=== PATIENT | male | born 1980 | race Caucasian/White ===

== ENCOUNTER 2019-05-08 08:38 | Emergency (ER) | payer OTHER ==
[~2019-05-08] VITALS: Ht 172.7 cm; Wt 68.0 kg
[2019-05-08 08:39] VITALS: BP 117/85
== END 2019-05-08 09:00 | disposition home or self-care (01) ==
LOC: ER 08:38
DX: K94.23 Gastrostomy malfunction (principal)

== ENCOUNTER 2019-06-17 12:20 | Emergency (ER) | payer OTHER ==
[~2019-06-17] VITALS: Ht 167.6 cm; Wt 88.9 kg
[2019-06-17 13:13] LABS: ABSOLUTE NEUTROPHILS 13.9 thou/uL (1.4-8.2); BASOPHILS 0.5 % (0.0-2.0); EOSINOPHILS 0.1 % (0.0-3.0); HEMOGLOBIN 19.5 gm/dL (14.0-18.0); LYMPHOCYTES 7.2 % (24.0-44.0); MCH 28.9 pg (26.0-34.0); MCHC 32.5 g/dL (28.0-37.0); MCV 88.9 fL (80.0-100.0); MONOCYTES 6.4 % (1.0-8.0); POLYS 85.8 % (36.0-66.0); RBC 6.75 mil/uL (4.50-6.00); RDW 14.4 % (10.5-14.5); WBC 16.2 thou/uL (4.0-11.0)
[2019-06-17 13:31] LABS: CREATININE 2.1 mg/dL (0.7-1.3); POTASSIUM 3.6 mmol/L (3.5-5.1)
[2019-06-17 13:34] LABS: CALCIUM 12.1 mg/dL (8.5-10.1)
[2019-06-17 13:42] LABS: ALBUMIN 4.1 g/dL (3.4-5.0); TOTAL BILIRUBIN 1.3 mg/dL (<0.1-1.0); TOTAL PROTEIN 8.9 g/dL (6.4-8.2); TROPONIN-I 0.2 ng/mL (<0.06)
[2019-06-17 14:25] LABS: LARGE PLATELETS FEW; PLATELET COUNT 303 thou/uL (150-400)
[2019-06-17 16:50] VITALS: BP 110/74
--- NOTE | 2019-06-18 08:29 | EKG ---
[place] [address] [facility] [place] [address] ELECTROCARDIOGRAM REPORT Name: LEONELA SOSA Room #: [facility] ([place], [place])Sangeeta#: [id number] Admission: 06/17/19 Attend Phys: Discharge: 06/17/19 Date of : 82 Report #: [id number] THIS REPORT FOR: //name// [facility] ED Test Date: 2019-06-17 Test Time: 12:31:59 Pat Name: LEONELA SOSA Department: Room: Gender: M Bi Lead: : 1980 Requested By: Sarah Norman Order Number: [id number] MD: Luc Montgomery Measurements Intervals [place] Rate: 140 P: 79 WA: 72 QRS: 58 QRSD: 80 T: 264 QT: 327 QTc: 499 Interpretive Statements Sinus tachycardia Abnormal R-wave progression, early transition Nonspecific ST segment abnormality Borderline prolonged QT interval No previous ECG available for comparison Electronically Signed On 06-18-2019 8:29:03 [employer] by Luc Montgomery [email or web address] <ELECTRONICALLY SIGNED> By: Luc Montgomery MD, [facility] 06/18/19 0829 1231 1231 Luc Montgomery MD, FACC /EPI
== END 2019-06-17 15:18 | disposition short-term general hospital (02) ==
LOC: ER 12:20
PROVIDERS: Nurse Practitioner
DX: A41.9 Sepsis, unspecified organism (principal); R41.82 Altered mental status, unspecified

== ENCOUNTER 2020-02-27 11:20 | Emergency (ER) | payer OTHER ==
[~2020-02-27] VITALS: Ht 167.6 cm; Wt 81.7 kg
[2020-02-27 12:14] LABS: HEMATOCRIT 56.9 % (42.0-52.0); HEMOGLOBIN 18.5 gm/dL (14.0-18.0); MCH 28.6 pg (26.0-34.0); MCHC 32.5 g/dL (28.0-37.0); RBC 6.46 mil/uL (4.50-6.00); RDW 13.6 % (10.5-14.5); WBC 20.7 thou/uL (4.0-11.0)
[2020-02-27 12:25] LABS: ANION GAP 8 mmol/L (7-16); BUN 49 mg/dL (7-18); CALCIUM 10.4 mg/dL (8.5-10.1); CHLORIDE 111 mmol/L (98-107); CO2 33 mmol/L (21-32); CREATININE 1.3 mg/dL (0.7-1.3); GLUCOSE 156 mg/dL (74-106); POTASSIUM 4.1 mmol/L (3.5-5.1)
[2020-02-27 12:25] LABS: BE(vivo) 3.6 mmol/L (-2 to +3); HCO3 29.4 mmol/L (22.0-26.0); PCO2 47.9 mmHg (35.0-45.0); PO2 68.1 mmHg (80.0-100.0); pH 7.406 (7.360-7.450); sO2 93.6 % (92.0-98.0)
[2020-02-27 12:28] LABS: SODIUM 152 mmol/L (136-145)
[2020-02-27 12:32] LABS: TROPONIN-I <0.06 ng/mL (<0.06)
[2020-02-27] MEDS ORDERED: PAROXETINE HCL40 MG PO (18:06)
[2020-02-27] MEDS ORDERED: SIMVASTATIN40 MG PO (18:06)
[2020-02-27] MEDS ORDERED: LEVOTHYROXINE75 MCG PO (18:06)
[2020-02-27 20:17] LABS: URINE BILIRUBIN NEGATIVE (Negative); URINE BLOOD 2+ (Negative); URINE CLARITY CLOUDY; URINE COLOR YELLOW; URINE GLUCOSE-RANDOM* NEGATIVE (Negative); URINE KETONES 1+ (Negative); URINE NITRITE-REFLEX NEGATIVE (Negative); URINE PROTEIN (DIPSTICK) 2+ (Negative); URINE SPECIFIC GRAVITY 1.025 (1.005-1.035); URINE UROBILINOGEN 0.2 E.U./dl (0.2-1.0)
[2020-02-27 20:19] LABS: URINE LEUKOCYTES-REFLEX 2+ (Negative)
[2020-02-27 20:28] LABS: BACTERIA-REFLEX >30 Many /HPF (None Seen); CASTS None Seen /LPF (None Seen); CRYSTALS None Seen /LPF (None Seen); URINE WBC-REFLEX >25 Many /HPF (0-5)
[2020-02-27 20:29] LABS: SQUAMOUS 4-10 Moderate /LPF (0-3)
[2020-02-27 20:39] LABS: AMP/METHAMP Negative (Negative); BARBITURATES Negative (Negative); BENZODIAZEPINES Negative (Negative); COCAINE Negative (Negative); METHADONE Negative (Negative); OPIATES Negative (Negative); PCP Negative (Negative)
[2020-02-27 22:22] VITALS: BP 104/68
--- NOTE | 2020-03-01 07:53 | EKG ---
[facility] [place] [address] ELECTROCARDIOGRAM REPORT Name: LEONELA SOSA [id number] Admission: 02/27/20 Attend Phys: Discharge: 02/27/20 Date of : [birth year] Report #: [id number] THIS REPORT FOR: cc: Adam Buckley MD, Dennis R MD Lundgren,Luc Mcarthur MD [facility] THIS REPORT FOR: //name// [facility] ED Test Date: 2020-02-27 Test Time: 11:42:47 Pat Name: LEONELA SOSA Department: Room: Gender: Customer Retention Representative: esheets : 1980 Requested By: Devante Caldera Order Number: [id number] MD: Luc Montgomery Measurements Intervals [place] Rate: 151 P: 78 ND: 66 QRS: 44 QRSD: 81 T: 147 QT: 286 QTc: 454 Interpretive Statements Sinus tachycardia Consider left ventricular hypertrophy Compared to ECG 06/17/2019 12:31:59 ST (T wave) deviation no longer present Electronically Signed On 03-01-2020 7:53:39 CDT by Luc Montgomery [email or web address] <ELECTRONICALLY SIGNED> By: Luc Montgomery MD, FACC 03/01/20 0753 1142 1142 Luc Montgomery MD, [facility] /EPI
== END 2020-02-27 22:23 | disposition short-term general hospital (02) ==
LOC: ER 11:20
PROVIDERS: Emergency Medicine
DX: A41.9 Sepsis, unspecified organism (principal); R65.20 Severe sepsis without septic shock; D72.829 Elevated white blood cell count, unspecified; R41.82 Altered mental status, unspecified; E87.1 Hypo-osmolality and hyponatremia; N39.0 Urinary tract infection, site not specified; E03.9 Hypothyroidism, unspecified; E78.5 Hyperlipidemia, unspecified; Z79.899 Other long term (current) drug therapy

== ENCOUNTER 2021-05-10 00:59 | Emergency (ER) | payer OTHER ==
[~2021-05-10] VITALS: Ht 172.7 cm; Wt 65.8 kg
--- NOTE | ~2021-05-10 | EMS ---
[address] [address] EMS Patient Care Report Name: LEONELA SOSA Room #: DEP [facility] Espitia#: [id number] Admission: 05/10/21 Attend Phys: Discharge: 05/10/21 Date of : [birth year] Report #: [id number] THIS REPORT FOR: //name// Report Transmitted: 05/11/2021 12:37 EMS Care Summary [place], [place]/[facility] Incident [id number] @ 05/10/2021 00:35 Incident Location [address] [place] [address] Patient LEONELA SOSA Male, 41 Years 1980 Patient Address [address] [place] [id number] Patient History Behavioral/Psychiatric Disorder,Depression,Type 2 Diabetes, Patient Allergies No known allergies, Patient Medications Simvastatin, Divalproex Sodium, Paroxetine, Levothyroxine, Ferrous Sulfate, Polyethlene Glycol, Aspirin, Chief Complaint S.I attempt Disposition Transported No Lights/[place] Reason Psychiatric Problem/Abnormal Behavior/Suicide Attempt Transported To [facility] Narrative EMS was cancelled on this Pt and to transport Pt to ER for having Suicidal ideations due to Charge nurse wanting Pt to be evaluated in ER. Nurse stated [address] [address] EMS Patient Care Report Name: LEONELA SOSA Room #: DEP Nupur#: [id number] Admission: 05/10/21 Attend Phys: Discharge: 05/10/21 Date of : 82 Report #: [id number] that when she checked with the Charge Nurse she told her to let [facility]. Nurse stated Pt was upset tonight do to not being able to play board games with other Pt.Pt got mad and threw the game across the room and started to curse and scream. Nurse stated Pt was taking to his room. Pt arrived back in his room and when he slammed the door he as caught with his call light around his neck attempting to hang himself. Pt stated that it was unfair to not allowing him to play. Pt is a GCS 14 with no other complaint. Pt found sitting in day room with staff sitting with him due to attempting to hang himself with the call light. EMS asked Pt why he attempted to hurt himself and Pt responded "They just don't like me and want me gone one way or another" Pt is with no redness noted on Pt neck area and Pt is breathing with no issues. Pt denied any complaints to EMS and Pt denied any C Spine pain or back pain and is with no other injury's noted on eval by EMS. Pt is transported to [facility] with no issues noted during transport and iPt is received by RN in the ER. Initial Vitals @00:55P: 82,R: 18,Pain: 0/10,GCS: 15,Glucose: 130,Revised Trauma: 12, @00:46P: 86,R: 18,BP: 144/74,Pain: 0/10,GCS: 15,Revised Trauma: 12, Assessments @00:43MENTAL:Person Oriented,Event Oriented,Time Oriented,Place Oriented,SKIN:HEENT:Head/Face: No Abnormalities,Neck/Airway: No Abnormalities,LUNG SOUNDS:General: No Abnormalities,ABDOMEN:General: No Abnormalities,PELVIS//GI:No Abnormalities,EXTREMITIES:Capillary Refill: Left Upper: < 2 Sec,Left Arm: No Abnormalities,Right Arm: No Abnormalities,Left Leg: No Abnormalities,Right Leg: No Abnormalities,PULSE:Radial: 2+ Normal,NEURO:No Abnormalities,@00:56MENTAL:Person Oriented,Time Oriented,Event Oriented,Place Oriented,SKIN:HEENT:Head/Face: No Abnormalities,Neck/Airway: No Abnormalities,LUNG SOUNDS:General: No Abnormalities,ABDOMEN:General: No Abnormalities,PELVIS//GI:No Abnormalities,EXTREMITIES:Capillary Refill: Right Upper: > 5 Sec,Left Arm: No Abnormalities,Right Arm: No Abnormalities,Left Leg: No Abnormalities,Right Leg: No Abnormalities,PULSE:Radial: 2+ Normal,NEURO:No Abnormalities, Impression Behavioral/psychiatric episode Procedures @00:43 ALS Assessment Response: UnchangedSucceeded Timeline 00:32,Call Received [address] [address] EMS Patient Care Report Name: LEONELA SOSA Room #: DEP [facility] Espitia#: [id number] Admission: 05/10/21 Attend Phys: Discharge: 05/10/21 Date of : [birth year] Report #: [id number] 00:32,Dispatch Notified 00:35,Dispatched 00:36,En Route 00:40,On Scene 00:43,At Patient 00:43,ALS Assessment,Response: UnchangedSucceeded, 00:46,BP: 144/74 M,PULSE: 86,RR: 18 R,SPO2: Ox,ETCO2: ,BG: ,PAIN: 0,GCS: 15, 00:51,Depart Scene 00:55,BP: 118/ M,PULSE: 82,RR: 18 R,SPO2: Ox,ETCO2: ,B,PAIN: 0,GCS: 15, 00:57,At Destination 01:12,Call Closed Disclaimer v1.1 Copyright 2020 [employer] This EMS Care Summary contains data elements from the applicable legal record (which may be displayed differently). It is designed to provide pertinent information for the following purposes: continuity of care, clinical quality, and state data reporting. The complete legal record is available to ED staff and administrators of the receiving hospital in [employer]'s Patient Tracker. All data is provided "as is."
[~2021-05-10 00:59] MED LIST: LEVOTHYROXINE75 MCG PO; PAROXETINE HCL40 MG PO; SIMVASTATIN40 MG PO
[2021-05-10 08:11] VITALS: BP 126/91
== END 2021-05-10 08:12 ==
LOC: ER 00:59
DX: F02.80 Dementia in other diseases classified elsewhere, unspecified severity, without behavioral disturbance, psychotic disturbance, mood disturbance, and anxiety (principal); Z20.822 Contact with and (suspected) exposure to COVID-19; E03.9 Hypothyroidism, unspecified; I25.2 Old myocardial infarction; E78.5 Hyperlipidemia, unspecified; Z79.899 Other long term (current) drug therapy; Z86.73 Personal history of transient ischemic attack (TIA), and cerebral infarction without residual deficits